=== PATIENT | female | born 1945 | race Caucasian/White ===

== ENCOUNTER 2018-12-15 11:24 | Outpatient (CLI) | payer BC | END 2018-12-15 11:25 | disposition short-term general hospital (02) | LOC: EMS 11:24 | PROVIDERS: ATTEND Surgery | DX: M25.562 Pain in left knee (principal) | CPT/HCPCS: A0425; A0427 ==

== ENCOUNTER 2019-03-31 17:51 | Outpatient (CLI) | payer BC ==
--- NOTE | 2019-04-01 02:05 | XRAY Report ---
Reason: BILATERAL RIB PAIN RT>LT Procedure Date: 03/31/2019 Accession Number: [id number] / [id number] Procedure: XR - Ribs Bilat w/Chest 4 View CPT Code: FULL RESULT: EXAM: BILATERAL RIB RADIOGRAPHY EXAM DATE: 03/31/2019 06:21 PM. CLINICAL HISTORY: Pain COMPARISON: None. TECHNIQUE: 1 view of the chest and 2 views of the ribs. FINDINGS: Bones: Normal. No fracture or bone lesion. Lungs: No focal opacities. No pneumothorax. No pleural effusions. Mediastinum: Heart and mediastinal contours are unremarkable. Other: None. IMPRESSION: Normal chest and rib radiography. RADIA
== END 2019-03-31 17:52 | disposition home or self-care (01) ==
LOC: DI 17:51
PROVIDERS: ATTEND Physician Assistant Medical
DX: R07.81 Pleurodynia (principal)
CPT/HCPCS: 71111

== ENCOUNTER 2021-05-03 10:59 | Outpatient (CLI) | payer BC | END 2021-05-03 11:00 | disposition critical access hospital (66) | LOC: EMS 10:59 | DX: R55 Syncope and collapse (principal) | CPT/HCPCS: A0425; A0429 ==

== ENCOUNTER 2021-05-03 11:20 | Emergency (ER) | payer BC ==
--- NOTE | 2021-05-03 12:02 | ED Physician Documentation ---
PD HPI SYNCOPE - Stated complaint Stated Complaint: SYNCOPE - Chief complaint Chief Complaint: General - History obtained from History obtained from: Patient - History of Present Illness Witnessed: Unwitnessed Timing - onset: Today Duration: Seconds Preceding symptoms: Light headed. No: Chest pain Associated symptoms: No: Seizure, Incontinant of urine, Incontinant of stool Contributing factors: Recent med change, Decreased PO intake Injury occurred: Fell, None Similar symptoms before: Has not had sx before Recently seen: Not recently seen - Additional information Additional information: 75-year-old female was working in her garden today she had been pulling some weeds she went to go walk into her house felt lightheaded and dizzy and collapsed. She did not injure herself should not have a head injury and she has recovered. She is brought in by ambulance for evaluation. Review of Systems Constitutional: denies: Fever Eyes: denies: Decreased vision Ears: denies: Ear pain Nose: denies: Rhinorrhea / runny nose, Congestion Throat: denies: Sore throat Cardiac: denies: Chest pain / pressure, Palpitations Respiratory: denies: Dyspnea, Cough GI: denies: Abdominal Pain, Nausea, Vomiting : denies: Dysuria, Frequency PD PAST MEDICAL HISTORY - Past Medical History Past Medical History: Yes Cardiovascular: Hypertension Respiratory: None Neuro: None Endocrine/Autoimmune: None GI: None ACCOUNT DEVELOPMENT REPRESENTATIVE: None : None HEENT: None Psych: None Musculoskeletal: None Derm: None - Past Surgical History Past Surgical History: Yes Ortho: Knee replacement - Present Medications Home Medications: Ambulatory Orders Medication Instructions Recorded Confirmed amLODIPine [Norvasc] 5 mg PO DAILY 05/03/21 05/03/21 hydroCHLOROthiazide [Hydrodiuril] 12.5 mg PO DAILY 05/03/21 05/03/21 - Allergies Allergies/Adverse Reactions: Allergies Allergy/AdvReac Type Severity Reaction Status Date / Time No Known Drug Allergies Allergy Verified 05/03/21 11:31 - Social History Does the pt smoke?: No Smoking Status: Never smoker Does the pt drink ETOH?: Yes Does the pt have substance abuse?: No - Immunizations Immunizations are current?: Yes PD ED PE NORMAL - Vitals Vital signs reviewed: Yes (normal ) - General General: Alert and oriented X 3, No acute distress, Well developed/nourished - HEENT HEENT: Atraumatic, PERRL, EOMI - Neck Neck: Supple, no meningeal sign, No bony TTP - Cardiac Cardiac: RRR, No murmur - Respiratory Respiratory: No respiratory distress, Clear bilaterally - Abdomen Abdomen: Normal bowel sounds, Soft, Non tender, No organomegaly - Back Back: No CVA TTP, No spinal TTP - Derm Derm: Normal color, Warm and dry, No rash - Extremities Extremities: No deformity, No edema - Neuro Neuro: Alert and oriented X 3, research program intern 2-12 intact, No motor deficit, No sensory deficit Eye Opening: Spontaneous Motor: Obeys Commands Verbal: Oriented GCS Score: 15 - Psych Psych: Normal mood, Normal affect Results - Vitals Vitals: Vital Signs - 24 hr 05/03/21 05/03/21 11:23 13:17 Temperature 36.2 C L Heart Rate 56 L 78 Respiratory 16 16 Rate Blood Pressure 135/63 H 155/109 H O2 Saturation 99 99 Oxygen O2 Source Room air - EKG (time done) 1124 Rate: Rate (enter#) (57) Rhythm: NSR Ischemia: Normal ST segments Compare to prior EKG: Old EKG unavailable Computer interpretation: Agree with computer - Labs Labs: Laboratory Tests 05/03/21 05/03/21 05/03/21 12:15 12:15 12:15 WBC 10.5 RBC 4.06 L Hgb 12.2 Hct 36.2 L MCV 89.2 MCH 30.0 MCHC 33.7 RDW 13.2 Plt Count 315 MPV 10.7 Neut # (Auto) 8.3 H Lymph # (Auto) 0.9 L M[place] # (Auto) 0.9 Eos # (Auto) 0.3 Baso # (Auto) 0.1 Absolute Nucleated RBC 0.00 Nucleated RBC % 0.0 Sodium 135 Potassium 4.6 Chloride 96 L Carbon Dioxide 27 Anion Gap 12.0 BUN 29 H Creatinine 1.6 H Estimated GFR (MDRD) 31 L Glucose 141 H Calcium 9.5 Total Bilirubin 0.9 AST 24 ALT 19 Alkaline Phosphatase 59 Troponin I High Sens 11.2 Total Protein 7.0 Albumin 4.3 Globulin 2.7 Albumin/Globulin Ratio 1.6 Lipase 39 Procedures - IVC sono (time) 1155 Bedside IVC sono: IVC measures (cm) (1.12), Dehydration (est 1-2 liter deficit) PD MEDICAL DECISION MAKING - ED course Complexity details: considered differential, d/w patient ED course: 75-year-old female on hydrochlorothiazide and amlodipine has developed lightheadedness and dizziness while she was out in the garden she went in to sit on her couch and when she went to get up from the couch she passed out.She is found to be mildly dehydrated on interrogation the inferior vena cava and she is given saline her electrocardiogram looks normal and we will check her electrolytes as well. Her blood work is also concerning for dehydration with BUN at 29. She does have history of proteinuria and she is seeing Dr. Jordan for this. She also has seen Dr. Turner as her general internist and physician leader. She is on hydrochlorothiazide and she is dehydrated. She has had a recent medication change. Departure - Departure Disposition: 01 Home, Self Care Clinical Impression: Dehydration, Syncope and collapse Condition: Stable Instructions: ED Dehydration Follow-Up: Renetta Mendosa PA [Primary Care Provider] - Discharge Date/Time: 05/03/21 13:23
[2021-05-03] MEDS ORDERED: SODIUM CHLORIDE 0.9% 1,000 ML IV STA (12:03)
[2021-05-03 12:22] LABS: BASOPHILS # (AUTO) 0.1 10^3/uL (0.0-0.1); BASOPHILS % (AUTO) 0.6 %; EOSINOPHILS # (AUTO) 0.3 10^3/uL (0.0-0.7); EOSINOPHILS % (AUTO) 3.2 %; HCT - HEMATOCRIT 36.2 % (37.0-47.0); HGB - HEMOGLOBIN 12.2 g/dL (12.0-16.0); LYMPHOCYTES # (AUTO) 0.9 10^3/uL (1.5-3.5); LYMPHOCYTES % (AUTO) 8.5 %; MEAN CORPUSCULAR HGB CONC 33.7 g/dL (32.0-36.0); MEAN CORPUSCULAR VOLUME 89.2 fL (81.0-99.0); MEAN PLATELET VOLUME 10.7 fL (7.9-10.8); MONOCYTES # (AUTO) 0.9 10^3/uL (0.0-1.0); MONOCYTES % (AUTO) 8.6 %; NEUTROPHILS # (AUTO) 8.3 10^3/uL (1.5-6.6); NEUTROPHILS % (AUTO) 78.7 %; PLT - PLATELET COUNT 315 10^3/uL (130-450); RED BLOOD COUNT 4.06 10^6/uL (4.20-5.40); RED CELL DISTRIBUTION WIDTH 13.2 % (12.0-15.0); WHITE BLOOD COUNT 10.5 x10^3/uL (4.8-10.8)
--- OUTSIDE RECORDS SUMMARY | 2021-05-03 12:27 | EXTERNAL MEDICAL SUMMARY RPT | Continuity of Care Document ---
:1945 Demographics Phone Unavailable Preferred Language Georgian Marital Status Unknown Pentecostalism Affiliation Unknown Race Unknown Ethnic Group Unknown Author Organization [facility] Address [address] [phone] Phone Care Team Providers Name Role Phone Kamara Unavailable Unavailable Allergies Encounters Medications date description facility 20210221 Lisinopril 20 MG Oral Tablet [facility]ital 20210221 Amlodipine 2.5 MG Oral Tablet [facility] ospital Problems date description facility 20210407 Change in bowel habit [facility] 20210406 Menopausal and female climacteric [facility] 20210406 Contact with and (suspected) exposure t o [address] 20210406 Chronic kidney disease, unspecified [facility] 20210324 Chronic kidney disease, stage 3a [facility] 20210324 Bladder-neck obstruction [facility] al 20210302 Encounter for screening mammogram for [facility] neoplasm of 20210221 Other specified symptoms and signs invo lving [facility] digestive s Procedures date description facility [id number] [facility] [id number] [facility] [id number] [facility] [id number] [facility] 20210221 [facility] Results Vital Signs date measurement value source 20210221 weight_standard 142.99 lb 20210221 weight_metric 64.86 kg 20210221 temperature_standard 97.8 F 20210221 temperature_metric 36.56 C 20210221 height_standard 62 in 20210221 height_metric 157.48 cm 20210221 heart_rate 68 /min 20210221 BP_systolic 134 mm[Hg] 20210221 BP_diastolic 78 mm[Hg] 20210221 BMI 26.2 kg/m2 20210407 weight_standard 63.5 lb 20210407 weight_metric 28.8 kg 20210407 temperature_standard 98.2 F 20210407 temperature_metric 36.78 C 20210407 respiration_rate 20 /min 20210407 height_standard 62 in 20210407 height_metric 157.48 cm 20210407 heart_rate 69 /min 20210407 BP_systolic 136 mm[Hg] 20210407 BP_diastolic 57 mm[Hg] 20210407 BMI 25.6 kg/m2
[2021-05-03 12:39] LABS: ALBUMIN 4.3 g/dL (3.2-5.5); ALBUMIN/GLOBULIN RATIO 1.6 (1.0-2.2); BILIRUBIN,TOTAL 0.9 mg/dL (0.2-1.0); CALCIUM 9.5 mg/dL (8.5-10.3); CREATININE 1.6 mg/dL (0.4-1.0); POTASSIUM 4.6 mmol/L (3.5-5.0)
[2021-05-03 13:18] VITALS: BP 155/109
== END 2021-05-03 13:23 | disposition home or self-care (01) ==
LOC: EDUNIT# → ED 11:20
DX: E86.0 Dehydration (principal); R55 Syncope and collapse; R42 Dizziness and giddiness; I10 Essential (primary) hypertension
CPT/HCPCS: 36415; 80053; 83690; 84484; 85025; 93005; 99284

== ENCOUNTER 2022-10-31 12:22 | Outpatient (CLI) | payer BC | END 2022-10-31 12:23 | disposition home or self-care (01) | LOC: DI 12:22 | PROVIDERS: ATTEND Internal Medicine Cardiovascular Disease | DX: R55 Syncope and collapse (principal); I51.7 Cardiomegaly; I51.89 Other ill-defined heart diseases | CPT/HCPCS: 93306 ==

== ENCOUNTER 2023-03-27 13:37 | Outpatient (CLI) | payer BC | END 2023-03-27 23:59 | disposition critical access hospital (66) | LOC: EMS 13:37 | DX: R53.1 Weakness (principal); R11.2 Nausea with vomiting, unspecified; R61 Generalized hyperhidrosis | CPT/HCPCS: A0425; A0429 ==

== ENCOUNTER 2023-03-27 13:53 | Emergency (ER) | payer BC ==
[2023-03-27] MEDS ORDERED: SODIUM CHLORIDE 0.9% 1,000 ML IV STA ×2 (14:25→14:59)
--- NOTE | 2023-03-27 14:28 | ED Physician Documentation ---
History of Present Illness - Stated complaint Stated Complaint: GEN WEAKNESS - Chief complaint Chief Complaint: Neuro - Additonal information Additional information: 89-year-old female presents emergency department for evaluation of generalized weakness. Reports she had a Zoom visit with a doctor yesterday who started on azithromycin because for the last several days she has been having some cough and congestion. No fevers. Reports that she was sitting and felt generally weak and nauseated. Denies chest pain or shortness of air. No history of similar. She does live independently. On presentation to the emergency department Spiering some mild hypertension she appears otherwise well. No focal neurodeficits Review of Systems Constitutional: denies: Fever Nose: reports: Congestion Throat: reports: Reviewed and negative Cardiac: denies: Chest pain / pressure, Palpitations Respiratory: reports: Reviewed and negative. denies: Dyspnea, Cough GI: reports: Reviewed and negative : reports: Reviewed and negative Musculoskeletal: reports: Reviewed and negative Neurologic: reports: Generalized weakness. denies: Focal weakness, Numbness PD PAST MEDICAL HISTORY - Past Medical History Cardiovascular: Hypertension Respiratory: None Neuro: None Endocrine/Autoimmune: None GI: None ENTERPRISE ANALYST: None : None HEENT: None Psych: None Musculoskeletal: None Derm: None - Past Surgical History Past Surgical History: Yes Ortho: Knee replacement - Present Medications Home Medications: Ambulatory Orders Medication Instructions Recorded Confirmed amLODIPine [Norvasc] 5 mg PO DAILY 05/03/21 05/03/21 hydroCHLOROthiazide [Hydrodiuril] 12.5 mg PO DAILY 05/03/21 05/03/21 - Allergies Allergies/Adverse Reactions: Allergies Allergy/AdvReac Type Severity Reaction Status Date / Time No Known Drug Allergies Allergy Verified 05/03/21 11:31 - Social History Does the pt smoke?: No Smoking Status: Never smoker Does the pt drink ETOH?: Yes Does the pt have substance abuse?: No - Immunizations Immunizations are current?: Yes PD ED PE NORMAL - General General: Alert and oriented X 3, No acute distress, Well developed/nourished - HEENT HEENT: Atraumatic - Neck Neck: Supple, no meningeal sign - Cardiac Cardiac: RRR, No murmur - Respiratory Respiratory: No respiratory distress, Clear bilaterally - Abdomen Abdomen: Normal bowel sounds, Soft - Derm Derm: Normal color, Warm and dry, No rash - Extremities Extremities: No deformity - Neuro Neuro: Alert and oriented X 3, color tester 2-12 intact Eye Opening: Spontaneous Motor: Obeys Commands Verbal: Oriented GCS Score: 15 Results - Vitals Vitals: Vital Signs - 24 hr 03/27/23 03/27/23 03/27/23 13:54 14:38 15:00 Temperature 35.7 C L Heart Rate 76 62 Heart Rate [ 63 Sitting] Heart Rate [ 65 Standing] Heart Rate [ 66 Supine] Respiratory 18 16 Rate Blood Pressure 130/97 H 148/61 H Blood Pressure 144/60 H [Sitting] Blood Pressure 140/80 H [Standing] Blood Pressure 142/57 H [Supine] O2 Saturation 100 99 03/27/23 16:30 Temperature Heart Rate Heart Rate [ 68 Sitting] Heart Rate [ 67 Standing] Heart Rate [ 71 Supine] Respiratory Rate Blood Pressure Blood Pressure 148/68 H [Sitting] Blood Pressure 148/71 H [Standing] Blood Pressure 145/74 H [Supine] O2 Saturation Oxygen O2 Source Room air - EKG (time done) 1400 EKG releavant findings:: EKG personally interpreted by author of this note. Relevant findings are: Rate: Rate (enter#) (54) Rhythm: NSR [place]: Normal Intervals: Normal [place] QRS: Normal Ischemia: Normal ST segments Compare to prior EKG: Unchanged from prior EKG Computer interpretation: Agree with computer - Labs Labs: Laboratory Tests 03/27/23 03/27/23 03/27/23 14:19 14:19 14:19 WBC 12.5 H RBC 4.08 L Hgb 11.9 L Hct 35.6 L MCV 87.3 MCH 29.2 MCHC 33.4 RDW 12.9 Plt Count 294 MPV 10.4 Neut # (Auto) 10.0 H Lymph # (Auto) 1.5 [place]ley # (Auto) 0.8 Eos # (Auto) 0.0 Baso # (Auto) 0.1 Absolute Nucleated RBC 0.00 Nucleated RBC % 0.0 Sodium 133 L Potassium 4.4 Chloride 92 L Carbon Dioxide 24 Anion Gap 17.0 H BUN 27 H Creatinine 1.7 H Estimated GFR (MDRD) 29 L Glucose 146 H Calcium 9.3 Total Bilirubin 1.0 AST 32 ALT 21 Alkaline Phosphatase 58 Troponin I High Sens 10.9 Total Protein 6.9 Albumin 4.2 Globulin 2.7 Albumin/Globulin Ratio 1.6 Lipase 40 Urine Color Urine Clarity Urine pH Ur Specific [place] Urine Protein Urine Glucose (UA) Urine Ketones Urine Occult Blood Urine Nitrite Urine Bilirubin Urine Urobilinogen Ur Leukocyte Esterase Ur Microscopic Review Urine Culture Comments 03/27/23 16:37 WBC RBC Hgb Hct MCV MCH MCHC RDW Plt Count MPV Neut # (Auto) Lymph # (Auto) [place] # (Auto) Eos # (Auto) Baso # (Auto) Absolute Nucleated RBC Nucleated RBC % Sodium Potassium Chloride Carbon Dioxide Anion Gap BUN Creatinine Estimated GFR (MDRD) Glucose Calcium Total Bilirubin AST ALT Alkaline Phosphatase Troponin I High Sens Total Protein Albumin Globulin Albumin/Globulin Ratio Lipase Urine Color YELLOW Urine Clarity CLEAR Urine pH 6.5 Ur Specific [place] 1.010 Urine Protein TRACE Urine Glucose (UA) NEGATIVE Urine Ketones NEGATIVE Urine Occult Blood NEGATIVE Urine Nitrite NEGATIVE Urine Bilirubin NEGATIVE Urine Urobilinogen 0.2 (NORMAL) Ur Leukocyte Esterase NEGATIVE Ur Microscopic Review NOT INDICATED Urine Culture Comments NOT INDICATED - Rads (name of study) cxr Relevant Findings:: Final report received (No acute cardiopulmonary process) PD Medical Decision Making - ED course Complexity details: reviewed results, re-evaluated patient, considered differential, d/w patient ED course: 77-year-old female presents emergency department for evaluation of sudden weakness. She has been dealing with a head cold for the last several days and was started on azithromycin by a Zoom doctor. This afternoon she was sitting on her stairs and was unable to get up. She had no focal deficits or slurred speech but felt incredibly weak. On presentation to the emergency department she appears rather well. She is afebrile without hypotension or tachycardia. She is nonfocal. Her NIHSS would have been 0. I did obtain a chest x-ray which showed no findings of pneumonia given the reported URI symptoms over the last week. I obtained CBC, electrolytes and urinalysis. Per my interpretation there is some mild leukocytosis which I believe is likely marginalization given the acute distress. Urinalysis shows no infection. However she does appear modestly dehydrated with a BUN of 27 and creatinine of 1.7. The patient was administered 2 L of IV fluids here in the emergency department and on reevaluation is markedly better able to ambulate with no assistance. Her orthostatics have been negative. At this time stable for discharge home. Advising the patient to have her renal function rechecked next week with PCP. The usual emergent return precautions were discussed Departure - Departure Disposition: Home, Self Care Clinical Impression: Dehydration, Acute kidney injury Condition: Serious Record reviewed to determine appropriate education?: Yes Instructions: ED Dehydration Comments: Maryanne you came to the emergency department today because you were feeling very weak at home. You have been dealing with an upper respiratory infection for the last several days or started on azithromycin yesterday. Your chest x-ray today is normal and does not show any findings of pneumonia. Your urine shows no signs of infection. We did obtain a CBC and electrolytes. You do appear very dehydrated as your BUN and creatinine are elevated. These are markers of kidney function. Here in the ER we did give you some IV fluids and on reevaluation you are feeling better. Is very important that you follow closely with your primary care provider. I like you to have your kidney values rechecked next week. Please return to the ER if you develop any sudden severe symptoms, have uncontrolled vomiting, abdominal pain, chest pain or shortness of air
[2023-03-27 14:29] LABS: BASOPHILS # (AUTO) 0.1 10^3/uL (0.0-0.1); BASOPHILS % (AUTO) 0.5 %; EOSINOPHILS % (AUTO) 0.3 %; HCT - HEMATOCRIT 35.6 % (37.0-47.0); HGB - HEMOGLOBIN 11.9 g/dL (12.0-16.0); LYMPHOCYTES # (AUTO) 1.5 10^3/uL (1.5-3.5); LYMPHOCYTES % (AUTO) 11.9 %; MEAN CORPUSCULAR HEMOGLOBIN 29.2 pg (27.0-31.0); MEAN CORPUSCULAR HGB CONC 33.4 g/dL (32.0-36.0); MEAN CORPUSCULAR VOLUME 87.3 fL (81.0-99.0); MEAN PLATELET VOLUME 10.4 fL (7.9-10.8); MONOCYTES # (AUTO) 0.8 10^3/uL (0.0-1.0); MONOCYTES % (AUTO) 6.5 %; NEUTROPHILS % (AUTO) 79.9 %; PLT - PLATELET COUNT 294 10^3/uL (130-450); RED BLOOD COUNT 4.08 10^6/uL (4.20-5.40); RED CELL DISTRIBUTION WIDTH 12.9 % (12.0-15.0); WHITE BLOOD COUNT 12.5 x10^3/uL (4.8-10.8)
[2023-03-27 14:37] LABS: ALBUMIN 4.2 g/dL (3.2-5.5); ALBUMIN/GLOBULIN RATIO 1.6 (1.0-2.2); CALCIUM 9.3 mg/dL (8.5-10.3); CREATININE 1.7 mg/dL (0.4-1.0); POTASSIUM 4.4 mmol/L (3.5-5.0); TOTAL PROTEIN 6.9 g/dL (6.7-8.2)
--- NOTE | 2023-03-27 14:45 | XRAY Report ---
PROCEDURE: Chest 1 View X-Ray INDICATIONS: generalized weakness TECHNIQUE: One view of the chest was acquired. COMPARISON: None. FINDINGS: Surgical changes and devices: None. Lungs and pleura: No pleural effusions or pneumothorax. Lungs are clear. Mediastinum: Mediastinal contours appear normal. Heart size is enlarged. Bones and chest wall: No suspicious bony lesions. Overlying soft tissues appear unremarkable. IMPRESSION: No acute cardiopulmonary process. Reviewed by: Zuhair Hubbard MD on 03/27/2023 2:43 PM PDT Approved by: Zuhair Hubbard MD on 03/27/2023 2:43 PM PDT Station ID: [id number]
[2023-03-27 16:48] LABS: BILIRUBIN,URINE NEGATIVE (NEGATIVE); GLUCOSE, URINE (UA) NEGATIVE (NEGATIVE); KETONES,URINE (UA) NEGATIVE (NEGATIVE); LEUKOCYTE ESTERASE, URINE NEGATIVE (NEGATIVE); NITRITE,URINE NEGATIVE (NEGATIVE); OCCULT BLOOD,URINE NEGATIVE (NEGATIVE); PH,URINE 6.5 PH (5.0-7.5); PROTEIN,URINE TRACE mg/dL (NEGATIVE); UROBILINOGEN,URINE 0.2 (NORMAL) E.U./dL (NORMAL)
[2023-03-27 16:53] LABS: CLARITY,URINE CLEAR (CLEAR)
[2023-03-27 17:29] VITALS: BP 137/82
== END 2023-03-27 17:29 | disposition home or self-care (01) ==
LOC: EDUNIT# → ED 13:53
DX: E86.0 Dehydration (principal); N17.9 Acute kidney failure, unspecified
CPT/HCPCS: 36415; 80053; 81001; 81003; 83690; 84484; 85025; 87086; 93005; 96360; 96361; 99284